=== PATIENT | female | born 1960 | race Caucasian/White ===

== ENCOUNTER → 2016-06-12 | Outpatient (CLI) | payer MEDICAID ==
[~2016-06-12] MED LIST: ATOR20TA9 PO; BERBERINE PO; FLUO40CA9 PO; SITA1TAB5 PO; [UNRECOGNIZED DRUG - OTHER] PO
== END | disposition home or self-care (01) ==
LOC: CFH 14:30
PROVIDERS: ATTEND Obstetrics & Gynecology
DX: Z12.31 Encounter for screening mammogram for malignant neoplasm of breast (principal)
CPT/HCPCS: G0202

== ENCOUNTER 2017-03-05 09:13 | Emergency (ER) | payer MEDICAID ==
[~2017-03-05] VITALS: Ht 165.1 cm; Wt 119.2 kg
[2017-03-05 09:20] VITALS: BP 116/74
== END 2017-03-05 11:54 | disposition home or self-care (01) ==
LOC: ED 10:43
DX: M79.651 Pain in right thigh (principal); M79.652 Pain in left thigh; E11.9 Type 2 diabetes mellitus without complications
CPT/HCPCS: 82962; 93970; 99284